=== PATIENT | female | born 1985 | race African-American/Black ===

== ENCOUNTER → 2016-11-09 | Outpatient (CLI) | payer MEDICAID ==
--- NOTE | 2016-11-09 10:35 | MA ---
Diagnostic Digital Mammogram With iCAD Analysis Clinical Indications: Evaluate palpable area in the anterior left breast. Technique: Standard cephalocaudal projections are obtained. Digital breast tomosynthesis was performe d in the MLO projection with reconstruction at 1.0 mm slice thickness and composite MLO views reconst ructed. This examination is processed by the iCAD computer aided detection system. Comparison: Baseline study; no previous mammograms have been performed. Breast density: Type B; Scattered fibroglandular densities. Findings: CAD was reviewed. There is a nodular asymmetry in the anterior left breast corresponding to the palpable abnormality. No suspicious microcalcifications are identified. The right breast is nega tive. Impression: Palpable nodule in the anterior left breast requires further evaluation, BI-RADS 0. Recommendation: Targeted left breast ultrasound which will be subsequently performed today. A verbal report was given to the patient. [facility] will send a result letter to the patient. Negative mammography should not preclude additional workup of a clinically suspicious finding. The patient's information is entered into a reminder system with a target due date for her next mammo gram.
--- NOTE | 2016-11-09 10:40 | US ---
Left Breast Ultrasound History: Evaluate palpable lump. Technique: Longitudinal and transverse images were obtained utilizing a 15 MHz transducer. Color Dop pler evaluation is employed for assessment of vascularity. Examination is interpreted in conjunction with diagnostic mammography performed today. Findings: In the anterior left breast at the 10:00 position 2 cm from the nipple there is a well-circ umscribed solid hypoechoic nodule measuring 3.2 x 1.5 cm.. Impression: The palpable area is solid and therefore suspicious, BI-RADS 4.. Recommendation: Ultrasound-guided core biopsy for tissue characterization. Findings and biopsy recommendation were reviewed with the patient in detail. Additionally, the [employer] g department will contact the patient's healthcare provider to obtain a request for the biopsy and e patient will be contacted to schedule the biopsy. [facility] will send a result letter to the patient.
== END ==
LOC: FIMAGING 09:10
PROVIDERS: ATTEND Radiology Diagnostic Radiology
DX: N63 Unspecified lump in breast (principal)
CPT/HCPCS: G0204; G0279

== ENCOUNTER → 2016-11-17 | Outpatient (CLI) | payer MEDICAID ==
[~2016-11-17] MED LIST: THROMBIN (RECOMBINANT) 5,000 UNIT VIAL TP ONE
--- NOTE | 2016-11-17 10:02 | US ---
Vacuum-Assisted Ultrasound-Guided Core Biopsy Left Breast History: Solid mass medial left breast Technique: Following informed consent, the mass within the inner periareolar position of the left br east was localized, from a medial approach. The skin was marked and then prepped and draped in steril e fashion. Following local anesthesia with 1% lidocaine, lidocaine mixed with epinephrine was injecte d deeper within the breast tissue. A small skin jonathan was placed on the skin surface, through which t he 9-gauge Suros vacuum-assisted core biopsy needle was advanced with ultrasound guidance into the ce ntral portion of the mass. Numerous core biopsy samples were obtained through the mass. A Suros titan ium clip was then placed in the central mass. Marcaine was then injected at the biopsy site for prolo nged analgesia. Hemostasis was obtained, a sterile pressure dressing was applied. A postprocedural ma mmogram was not obtained. She was discharged without complication, with instructions to call us with any thoughts, complications or concerns. Impression: 1. Successful ultrasound-guided core biopsy of mass left breast.. 2. Successful deployment of Suros titanium clip within the mass.
== END ==
LOC: FIMAGING 07:10
PROVIDERS: ATTEND Physician Assistant
PROC: 0HBU3ZX Excision of Left Breast, Percutaneous Approach, Diagnostic (ICD-10-PCS; principal; 2016-11-17)
DX: D24.2 Benign neoplasm of left breast (principal)